=== PATIENT | male | born 1980 | race Caucasian/White ===

== ENCOUNTER 2019-03-11 17:30 | Emergency (ER) | payer OTHER ==
[~2019-03-11] VITALS: Ht 188 cm; Wt 97.5 kg
[2019-03-11] MEDS ORDERED: KEFLEX500 M1 PO (19:56)
[2019-03-11 20:38] VITALS: BP 126/82
== END 2019-03-11 20:38 | disposition home or self-care (01) ==
LOC: ER 17:30
DX: S68.126A Partial traumatic metacarpophalangeal amputation of right little finger, initial encounter (principal); X58.XXXA Exposure to other specified factors, initial encounter; Y93.89 Activity, other specified; Y92.89 Other specified places as the place of occurrence of the external cause; Y99.8 Other external cause status